=== PATIENT | male | born 1940 | race African-American/Black ===

== ENCOUNTER 2025-02-12 16:23 | Inpatient (IN) | payer OTHER ==
[~2025-02-12] VITALS: Ht 172.7 cm; Wt 104.3 kg
[2025-02-12] MEDS: NALOXONE HCL 1MG/ML 2ML VIAL ONE (16:31)
[2025-02-12] MEDS: NOREPINEPHRINE 8MG/250ML PMX 250 ML IV ONE ×2 (16:42→16:45)
[2025-02-12] MEDS: SODIUM CHLORIDE 0.9% (SEPSIS BOLUS) IV ONE (17:38)
[2025-02-12 17:39] LABS: BG BASE EXCESS -0.1 mmol/L (-2.0-3.0); BG CARBOXYHEMOGLOBIN 0.3 % (0.5-1.5); BG DEOXYHEMOGLOBIN 0.4 % (0.0-5.0); BG FRACTION INSPIRED OXYGEN 100; BG METHEMOGLOBIN 0.1 % (0.5-1.5); BG OXYGEN SATURATION 99.6 % (94.0-98.0); BG OXYHEMOGLOBIN 99.2 % (94.0-98.0); BG PCO2 42.2 mmHg (35.0-48.0); BG PO2 200.2 mmHg (83.0-108.0); BG SAMPLE SITE LEFT RADIAL; BG TOTAL HEMOGLOBIN 10.8 g/dL (13.5-17.5); BG VENT MODE MASK - NRB
[2025-02-12 17:43] LABS: BASOPHILS % 0.5 % (0.0-2.0); EOSINOPHILS % 1.7 % (0.0-5.0); HEMATOCRIT. 32.8 % (42.0-52.0); HEMOGLOBIN. 10.8 g/dL (14.0-18.0); LYMPHOCYTES % 42.5 % (20.0-50.0); MEAN CORPUSCULAR HEMOGLOBIN 30.9 pg (28.0-32.0); MEAN CORPUSCULAR HGB CONC 33.1 g/dL (31.0-37.0); MEAN CORPUSCULAR VOLUME 93.4 fL (80.0-94.0); MEAN PLATELET VOLUME 9.3 fl (7.4-10.4); MONOCYTES % 12.4 % (2.0-8.0); NEUTROPHILS % 42.9 % (40.0-76.0); PLATELET 205 x1000/uL (130-400); RED BLOOD CELL COUNT 3.51 mill/uL (4.7-6.1); RED CELL DISTRIBUTION WIDTH 14.4 % (11.6-14.6); WHITE BLOOD COUNT 8.6 x1000/uL (4.5-11.0)
[2025-02-12] MEDS: PIPERACILLIN/TAZO 3.375G/50ML 50 ML IV ONE (17:49)
[2025-02-12] MEDS: VANCOMYCIN 1G PREMIX 200 ML IV ONE (17:51)
[2025-02-12 18:02] LABS: D-DIMER 0.3 mg/L FEU (<0.50); INR 1.1; PROTHROMBIN TIME 11.3 sec (9.6-11.0)
[2025-02-12 18:18] LABS: LACTIC ACID 2.6 mmol/L (0.4-2.0)
[2025-02-12 18:33] LABS: CARBON DIOXIDE 29 mEq/L (21-32); CHLORIDE 107 mEq/L (98-107); POTASSIUM 3.4 mEq/L (3.5-5.1); SODIUM 142 mEq/L (136-145)
[2025-02-12 18:34] LABS: CALCIUM 9.1 mg/dL (8.7-10.4)
[2025-02-12 18:39] LABS: CREATININE 1.3 mg/dL (0.6-1.3); ETHANOL BLOOD < 10 mg/dL (<10); GLUCOSE 79 mg/dL (70-105); UREA NITROGEN BLOOD 15 mg/dL (9-23)
[2025-02-12 18:40] LABS: ALANINE AMINOTRANSFERASE 16 IU/L (10-49); ASPARTATE AMINOTRANSFERASE 23 IU/L (<34); TROPONIN I HIGH SENSITIVITY 4 ng/L (3.0-53)
[2025-02-12 18:41] LABS: ALBUMIN 3.6 g/dL (3.2-4.8); BILIRUBIN DIRECT 0.3 mg/dL (<=3.0); BILIRUBIN TOTAL 0.9 mg/dL (0.1-1.0); PROTEIN TOTAL 6.8 g/dL (6.0-8.3)
[2025-02-12 19:30] LABS: TROPONIN I HIGH SENSITIVITY 7 ng/L (3.0-53)
[2025-02-12] MEDS: CALCIUM GLUCONATE 100MG/ML 10ML VIAL IV ONE (19:54)
[2025-02-12] MEDS: POTASSIUM CHLORIDE 20MEQ TABLET SR PO NR (19:55)
[2025-02-12] MEDS ORDERED: DEXTROSE 50% WATER 50ML SYRINGE IV PRN (20:30)
[2025-02-12] MEDS ORDERED: ONDANSETRON HCL 4MG/2ML INJ IV PRN (20:30)
[2025-02-12] MEDS ORDERED: ACETAMINOPHEN 325MG TABLET PO PRN (20:30)
[2025-02-12] MEDS ORDERED: DOCUSATE SODIUM 100MG CAPSULE PO PRN (20:30)
[2025-02-12] MEDS ORDERED: KCL 20MEQ/100ML PREMIX 100 ML IV NR (20:30)
[2025-02-12] MEDS ORDERED: GUAIFENESIN 200MG/10ML SUGAR FREE UDC PO PRN (20:30)
[2025-02-12] MEDS ORDERED: CLONIDINE 0.1MG TABLET PO PRN (20:30)
[2025-02-12] MEDS ORDERED: NALOXONE HCL 1MG/ML 2ML VIAL IV PRN (20:45)
[2025-02-12] MEDS ORDERED: IPRATROPIUM/ALBUTEROL 0.5-3(2.5)MG/3ML NEB HHN PRN (21:00)
[2025-02-12 21:14] LABS: IRON 75 ug/dL (65-175)
[2025-02-12 21:17] LABS: PHOSPHORUS 2.6 mg/dL (2.5-4.9); TOTAL IRON BINDING CAPACITY 222 ug/dl (250-425)
[2025-02-12] MEDS ORDERED: NOREPINEPHRINE 8MG/250ML PMX 250 ML IV PRN (21:22)
[2025-02-12 22:15] VITALS: BP 122/46; PULSE 74; RESP 19; TEMP 36.8
[2025-02-12 23:00] VITALS: BP 122/46; PULSE 74; RESP 19; TEMP 36.8; O2SAT 100
[2025-02-12 23:07] LABS: CREATINE KINASE 232 IU/L (46-171)
[2025-02-12] MEDS ORDERED: IOHEXOL-350 100 ML BOTTLE ONE (23:59)
[2025-02-13] MEDS ORDERED: DILT-26 PO (00:01)
[2025-02-13] MEDS ORDERED: TAMS-54 (00:01)
[2025-02-13] MEDS ORDERED: ATOR40TA70 PO (00:01)
[2025-02-13] MEDS ORDERED: RIVA20TA PO (00:01)
[2025-02-13] MEDS ORDERED: FURO20TA4 PO (00:01)
[2025-02-13] MEDS ORDERED: LISI20TA31 PO (00:01)
[2025-02-13] MEDS ORDERED: TAMSULOSIN (00:01)
[2025-02-13] MEDS ORDERED: GABA-1180 PO (00:01)
[2025-02-13 02:23] LABS: LACTIC ACID 2.2 mmol/L (0.4-2.0)
[2025-02-13 03:12] LABS: HEPATITIS B SURFACE ANTIGEN NEGATIVE (Negative)
[2025-02-13 03:33] LABS: HEPATITIS C AB NON REACTIVE (Neg) (Negative)
[2025-02-13 03:47] VITALS: BP 113/56; PULSE 71; RESP 18; TEMP 36.4; O2SAT 100
[2025-02-13] MEDS: BLOOD SUGAR DIAGNOSTIC STRIP TEST SCH (05:53)
[2025-02-13 06:22] LABS: CHLORIDE 112 mEq/L (98-107); POTASSIUM 4.2 mEq/L (3.5-5.1); SODIUM 144 mEq/L (136-145)
[2025-02-13 06:23] LABS: CARBON DIOXIDE 27 mEq/L (21-32)
[2025-02-13 06:28] LABS: GLUCOSE 124 mg/dL (70-105); TRIGLYCERIDE 81 mg/dL (0-150); UREA NITROGEN BLOOD 14 mg/dL (9-23)
[2025-02-13 06:29] LABS: LDL CHOLESTEROL 73 mg/dL (5-100)
[2025-02-13 06:30] LABS: CHOLESTEROL 135 mg/dL (<200); CREATINE KINASE 206 IU/L (46-171); HDL CHOLESTEROL 41 mg/dL (>55)
[2025-02-13 06:32] LABS: THYROID STIMULATING HORMONE 2.09 uIU/mL (0.55-4.78)
[2025-02-13 06:34] LABS: BASOPHILS % 0.7 % (0.0-2.0); EOSINOPHILS % 1.7 % (0.0-5.0); HEMATOCRIT. 26.4 % (42.0-52.0); HEMOGLOBIN. 8.5 g/dL (14.0-18.0); LYMPHOCYTES % 24.6 % (20.0-50.0); MEAN CORPUSCULAR HEMOGLOBIN 30.6 pg (28.0-32.0); MEAN CORPUSCULAR HGB CONC 32.3 g/dL (31.0-37.0); MEAN CORPUSCULAR VOLUME 94.6 fL (80.0-94.0); MONOCYTES % 10.6 % (2.0-8.0); NEUTROPHILS % 62.4 % (40.0-76.0); PLATELET 146 x1000/uL (130-400); RED BLOOD CELL COUNT 2.79 mill/uL (4.7-6.1); RED CELL DISTRIBUTION WIDTH 14.5 % (11.6-14.6); WHITE BLOOD COUNT 5.8 x1000/uL (4.5-11.0)
[2025-02-13 07:53] VITALS: BP 109/49; PULSE 64; RESP 20; TEMP 36.5; O2SAT 100
[2025-02-13] MEDS: INSULIN LISPRO 100 UNITS/ML SUBCUT SCH (08:10)
[2025-02-13] MEDS: PANTOPRAZOLE 40MG DR TABLET PO SCH (10:45)
[2025-02-13] MEDS: ENOXAPARIN 30MG/0.3ML SYR SUBCUT SCH (10:46)
[2025-02-13 11:32] VITALS: BP 120/64; PULSE 70; RESP 19; TEMP 36.6; O2SAT 98
[2025-02-13 11:38] LABS: CLARITY URINE CLEAR (CLEAR); COLOR URINE YELLOW (YELLOW); GLUCOSE URINE NEGATIVE (NEGATIVE); KETONES URINE NEGATIVE (NEGATIVE); LEUKOCYTE ESTERASE URINE NEGATIVE (NEGATIVE); NITRITE URINE NEGATIVE (NEGATIVE); OCCULT BLOOD URINE TRACE (NEGATIVE); PH URINE 5.5 (4.5-8.0); PROTEIN URINE NEGATIVE (NEGATIVE); SPECIFIC GRAVITY URINE 1.023 (1.005-1.030); UROBILINOGEN URINE 0.2 E.U./dL (0.2-1.0)
[2025-02-13 12:02] LABS: *AMPHETAMINES SCREEN URINE NEGATIVE (NEGATIVE)
[2025-02-13 12:03] LABS: *BARBITURATES SCREEN URINE NEGATIVE (NEGATIVE); *BENZODIAZEPINES SCREEN URINE NEGATIVE (NEGATIVE); *COCAINE SCREEN URINE NEGATIVE (NEGATIVE); CANNABINOID URINE SCREEN NEGATIVE (NEGATIVE); ECSTASY MDMA SCREEN URINE NEGATIVE (NEGATIVE); METHADONE URINE SCREEN NEGATIVE (NEGATIVE); OPIATES URINE SCREEN NEGATIVE (NEGATIVE); PHENCYCLIDINE URINE SCREEN NEGATIVE (NEGATIVE)
[2025-02-13 12:25] LABS: SQUAMOUS EPITHELIAL CELL URINE RARE /lpf (RARE/1+)
[2025-02-13 12:26] LABS: WBC URINE NONE SEEN /hpf (0-2)
[2025-02-13 12:27] LABS: BACTERIA URINE NONE SEEN
[2025-02-13] MEDS: SODIUM CHLORIDE 0.9% 1,000 ML IV SCH (13:24)
[2025-02-13 16:23] VITALS: BP 138/70; PULSE 69; RESP 20; TEMP 36.6; O2SAT 98
[2025-02-13 16:56] VITALS: BP 138/70; PULSE 69; TEMP 97; O2SAT 98
[2025-02-13 17:16] LABS: IRON 53 ug/dL (65-175)
[2025-02-13 17:19] LABS: TOTAL IRON BINDING CAPACITY 192 ug/dl (250-425)
[2025-02-13 19:41] LABS: FERRITIN 50 ng/mL (22-322)
[2025-02-13 19:45] LABS: FOLIC ACID (FOLATE) SERUM 12.26 ng/mL (>5.38); VITAMIN B12 SERUM 318 pg/mL (211-911)
== END 2025-02-13 18:25 | disposition short-term general hospital (02) | DRG 71 ==
LOC: ER 16:23 → EDBEDREQ 19:12 → EDBEDREQTM 19:12 → ENRESERV 20:54 → 7WST 21:06
PROVIDERS: ADMIT Hospitalist; ATTEND Hospitalist
DX: G93.41 Metabolic encephalopathy (principal); E87.20 Acidosis, unspecified; I82.5Z2 Chronic embolism and thrombosis of unspecified deep veins of left distal lower extremity; G91.2 (Idiopathic) normal pressure hydrocephalus; I95.9 Hypotension, unspecified; E87.6 Hypokalemia; D64.9 Anemia, unspecified; L81.9 Disorder of pigmentation, unspecified; I87.8 Other specified disorders of veins; I87.2 Venous insufficiency (chronic) (peripheral); K59.00 Constipation, unspecified; Z79.4 Long term (current) use of insulin; Z87.891 Personal history of nicotine dependence
CPT/HCPCS: 36415; 36600; 71045; 71275; 74174; 80048; 80061; 80076; 80305; 80320; 81003; 82375; 82550; 82607; 82728; 82746; 82805; 82962; 83036; 83540; 83550; 83605; 83735; 83880; 84100; 84145; 84443; 84484; 85025; 85379; 86705; 86850; 86900; 87340; 93005; 93970; 96365; 96367; 96368; 97166; 99291; 99292; J0610; J1650; J2310; J2543; J3370; J3490; J7030; Q9967; G0480